=== PATIENT | male | born 2005 | race Caucasian/White ===

== ENCOUNTER 2024-06-20 00:51 | Emergency (ER) | payer OTHER, SELFPAY ==
--- NOTE | ~2024-06-20 | XR_ITS ---
EXAMINATION: XR chest 1V portable DATE: 06/20/2024 01:40 INDICATION: Syncope. TECHNIQUE: A single frontal view of the chest was obtained. COMPARISON: None. FINDINGS: There is no pneumonia, pleural effusion, or pneumothorax. The heart size is normal. IMPRESSION: 1. No acute cardiopulmonary disease. Reviewed, dictated and finalized at location A. [place] [employer]
[2024-06-20 00:55] VITALS: BP 126/78; PULSE 76; RESP 15; TEMP 36.6; O2SAT 100
--- NOTE | 2024-06-20 00:55 | ECG_ITS ---
Test Date: 2024-06-20 00:58:41 Measurements Intervals [place] Rate: 63 P: 65 AL: 162 QRS: 42 QRSD: 114 T: 38 QT: 385 QTc: 397 Interpretive Statements SINUS RHYTHM POSSIBLE RIGHT VENTRICULAR CONDUCTION DELAY [RSR (QR) IN V1/V2] ST ELEVATION, PROBABLY EARLY REPOLARIZATION [ST ELEVATION WITH NORMALLY INFLECTED T-WAVE] No previous ECG available for comparison Electronically Signed On 06-20-2024 12:05:37 [employer] by Jose Alberto Sams M.D.
[2024-06-20] MEDS: LACTATED RINGERS 1,000 ML 999 ML IV CONT (01:24)
[2024-06-20 01:34] LABS: Basophils Absolute Auto 0.1 K/mm3 (0.0-0.1); Basophils Percent Auto 0.8 % (0.2-1.2); Eosinophils Absolute Auto 0.5 K/mm3 (0-0.3); Eosinophils Percent Auto 5.1 % (0-4.4); Hematocrit 36.7 % (42.0-52.0); Hemoglobin 12.1 g/dL (14.0-18.0); Immature Granulocyte Absolute 0.08 K/mm3 (0.00-0.031); Immature Granulocyte Percent A 0.9 % (0-0.5); Lymphocytes Absolute Auto 2.12 K/mm3 (0.9-3.2); Lymphocytes Percent Auto 23.4 % (18.3-44.2); Mean Corpuscular Hemoglobin 28.8 pg (26-34); Mean Corpuscular Volume 87.4 fl (80-100); Mean Platelet Volume 9.3 fl (7.4-10.4); Monocytes Absolute Auto 0.6 K/mm3 (0.1-0.6); Monocytes Percent Auto 7.1 % (2.6-8.5); Neutrophils Absolute Auto 5.7 K/mm3 (1.3-6.7); Neutrophils Percent Auto 62.7 % (45.5-73.1); Platelet Count Result 182 k/mm3 (150-375); Red Cell Distribution Width 13.7 % (11.5-14.5); White Blood Count 9.1 K/mm3 (4.5-10.0)
[2024-06-20 01:45] LABS: Alanine Aminotransferase 29 U/L (6-50); Alkaline Phosphatase 68 U/L (38-126); Anion Gap 5 mmol/L (4-12); Aspartate Amino Transferase 36 U/L (17-59); Bilirubin,Total 0.4 mg/dL (0.2-1.3); Blood Urea Nitrogen 12 mg/dL (9-20); Calcium 8.9 mg/dL (8.4-10.2); Carbon Dioxide 30 mmol/L (22-30); Chloride 102 mmol/L (98-107); Estimated CRCL calculation 111 ml/min; Estimated Glomerular Filt Rate > 60; Glucose 96 mg/dL (65-110); Potassium 4.1 mmol/L (3.4-5.0); Sodium 137 mmol/L (137-145)
--- NOTE | 2024-06-20 01:54 | ED.SYNCOPE ---
HPI - Syncope General Chief Complaint: Syncope Stated Complaint: syncope Time Seen by Provider: 06/20/24 00:56 History of Present Illness HPI narrative: 19-year-old male with no significant past medical history presenting via EMS for concerns of a syncopal event at home. Patient states he was eating and started to feel lightheaded and had a syncopal episode that was witnessed by family members. It was brief in nature and he regained consciousness quickly thereafter. No significant trauma. Woke up feeling okay and when EMS arrived he initially tried to refuse transport but when they tried getting orthostatic vitals on him he became lightheaded and had a near syncopal event the 2nd time. Patient states he has been eating and drinking okay but may be drinking more so than usual. Denies any headache, nauseous, vomiting, chest pain, shortness a breath. Takes Prozac for anxiety but no other medications. Otherwise was in his normal state of health. Endorses marijuana but no other drug use. Presently asymptomatic during my initial assessment. Related Data Allergies Allergy/AdvReac Type Severity Reaction Status Date / Time No Known Allergies Allergy Verified 06/20/24 01:00 Review of Systems Review of Systems: As reviewed above in HPI Exam Narrative: GENERAL: [Well-appearing, well-nourished, and in no acute distress.] HEAD: [Normocephalic, atraumatic.] EYES: [PERRLA and EOMI.] ENT: Nares clear, no rhinorrhea or epistaxis. Mucous membranes moist. NECK: Supple. CHEST: [Clear to auscultation. No respiratory distress.] HEART: [Regular rate and rhythm]. No murmur heard. [Normal peripheral pulses.] ABDOMEN: [Soft, nondistended], [nontender], [No rigidity or guarding] EXTREMITIES: Normal range of motion. [No edema.] SKIN: Warm, dry, no rash. NEURO: [No focal deficits]. Alert and oriented [x3.] PSYCH: [Normal mood and affect.] Course Vital Signs Vital signs: Vital Signs Temperature 36.6 C 06/20/24 00:55 Pulse Rate 76 06/20/24 00:55 Respiratory Rate 15 06/20/24 00:55 Blood Pressure 126/78 06/20/24 00:55 Pulse Oximetry 100 06/20/24 00:55 Oxygen Delivery Room Air 06/20/24 00:55 Temperature 36.6 C 06/20/24 00:55 Pulse Rate 76 06/20/24 00:55 Respiratory Rate 15 06/20/24 00:55 Blood Pressure 126/78 06/20/24 00:55 Pulse Oximetry 100 06/20/24 00:55 Oxygen Delivery Room Air 06/20/24 00:55 MDM - Syncope MDM Narrative Medical decision making narrative: 19-year-old overall well-appearing male presenting to the emergency department for a syncopal event at home. Patient was otherwise in his normal state of health, kind of suddenly to go get some dessert at the dinner table and felt lightheaded pass out. Was brief with no seizure-like activity and regained consciousness quickly thereafter. EMS arrived and he had a near syncopal event while getting orthostatic vitals. Presently asymptomatic and denies any headache, vision change, chest pain, shortness a breath. Does appear dehydrated on his mucous membranes but states that he has been eating and drinking but notes that he has been treating more so these past few days. No cardiovascular history. No similar events previously. He has normal reassuring vital signs here with a stable blood pressure 126/78. No tachycardia, hypoxia, tachypnea or fever. Appears well and aside from dehydration on his exam does not have any focal findings. Neurological assessment normal, symmetric pulses with warm extremities. A workup was ordered including a chest x-ray, EKG, CBC, CMP and he was given a fluid bolus. Patient was re-evaluated frequently and still asymptomatic while here in the emergency department. Laboratory studies showed no leukocytosis but is anemic at 12.1 which is unusual. Patient has no melena or dark stools, no hematuria or any vomiting. He states he was never told he was anemic before. Endorses a normal diet. His laboratory studies showed normal electrolytes, normal renal function, normal hepatic function. Chest x-ray was independently reviewed by myself and I appreciate no pneumothorax, consolidations, masses or any acute cardiothoracic process. Patient was re-evaluated here in the emergency department still asymptomatic. He was given a fluid bolus and we discussed his anemia and also recommendations for outpatient follow-up with further investigative studies including iron labs and patient and family at bedside were agreeable with this. They felt comfortable with discharge at this time patient was stable for DC. Medical Records Attestation: I reviewed the patient's medical records. Lab Data Attestation: I reviewed the patient's lab results. 06/20/24 01:08 06/20/24 01:08 Labs: Lab Results 06/20/24 Range/Units 01:08 WBC 9.1 (4.5-10.0) K/mm3 RBC 4.20 L (4.6-6.20) M/mm3 Hgb 12.1 L (14.0-18.0) g/dL Hct 36.7 L (42.0-52.0) % MCV 87.4 (80-100) fl MCH 28.8 (26-34) pg MCHC 33.0 (32-36) g/dl RDW 13.7 (11.5-14.5) % Plt Count 182 (150-375) k/mm3 MPV 9.3 (7.4-10.4) fl Immature Gran % (Auto) 0.9 H (0-0.5) % Neut % (Auto) 62.7 (45.5-73.1) % Lymph % (Auto) 23.4 (18.3-44.2) % [place] % (Auto) 7.1 (2.6-8.5) % Eos % (Auto) 5.1 H (0-4.4) % Baso % (Auto) 0.8 (0.2-1.2) % Lymph # (Auto) 2.12 (0.9-3.2) K/mm3 [place] # (Auto) 0.6 (0.1-0.6) K/mm3 Eos # (Auto) 0.5 H (0-0.3) K/mm3 Baso # (Auto) 0.1 (0.0-0.1) K/mm3 Abs Immat Gran (auto) 0.08 H (0.00-0.031) K/mm3 Absolute Neuts (auto) 5.7 (1.3-6.7) K/mm3 Absolute Nucleated RBC 0.000 (0.0-0.012) K/mm3 Nucleated RBC % 0.0 (0.0-0.2) % Sodium 137 (137-145) mmol/L Potassium 4.1 (3.4-5.0) mmol/L Chloride 102 (98-107) mmol/L Carbon Dioxide 30 (22-30) mmol/L Anion Gap 5 (4-12) mmol/L BUN 12 (9-20) mg/dL Creatinine 0.90 (0.7-1.3) mg/dL Estim Creat Clear Calc 111 ml/min Estimated GFR > 60 (59 - ) Glucose 96 (65-110) mg/dL Calcium 8.9 (8.4-10.2) mg/dL Total Bilirubin 0.4 (0.2-1.3) mg/dL AST 36 (17-59) U/L ALT 29 (6-50) U/L Alkaline Phosphatase 68 (38-126) U/L Total Protein 6.0 L (6.3-8.2) g/dL Albumin 4.0 (3.5-5.1) g/dL Imaging Data Attestation: I personally reviewed and interpreted this imaging study as follows: My impression: No acute cardiothoracic process, no pneumothorax, no pneumonia, or consolidations ECG Data EKG #1: ECG completion date: 06/20/24 ECG completion time: 00:58 Prior ECG tracings: not available for review Interpretation: Regular rate rhythm an axis, J-point elevations consistent with benign early repolarization pattern otherwise healthy male. No ST segment depressions or inversions. No interval anomalies. Normal QTC and SD intervals. Overall normal sinus rhythm with benign early repolarization pattern. Discharge Plan Discharge Clinical Impression: Anemia, Syncope due to orthostatic hypotension Patient Disposition: Home, Self-Care Condition: Stable Instructions: Antibiotic Form, Syncope (ED), Near Syncope (ED), Anemia (ED) Additional Instructions: Follow-up with a primary care provider for further evaluation of your anemia. This could be contributing to your orthostatic syncope that happened today. You can always return with any new or worsening concerns but you are safe for stable for discharge home at this time. Follow-up/Referrals: Trish Dugan DO [Physician] - 3 Days (Establish PCP) Trish Peter MD [Primary Care Provider] - Time of Disposition: 02:37
[2024-06-20 03:04] VITALS: BP 126/69; PULSE 78; RESP 18; O2SAT 100
== END 2024-06-20 03:11 | disposition home or self-care (01) ==
PROVIDERS: Emergency Provider Student in an Organized Health Care Education/Training Program; PCP Pediatrics
DX: I95.1 Orthostatic hypotension (principal); F41.9 Anxiety disorder, unspecified; D64.9 Anemia, unspecified
CPT/HCPCS: 36415; 71045; 80053; 85025; 93005; 99284; J7120